=== PATIENT | female | born 1950 | race Caucasian/White ===

== ENCOUNTER 2023-03-13 18:14 | Emergency (ER) | payer OTHER, MEDICARE ==
[2023-03-13] MEDS ORDERED: Boostrix 0.5 ML (Tdap) VIAL (>/=7 yrs of age) ONE (18:38)
[2023-03-13] MEDS ORDERED: Lidocaine 2% w/Epinephrine 1:200K 20 ML VIAL ONE (18:57)
[2023-03-13] MEDS ORDERED: Lidocaine 2% PF 5 ML VIAL ONE (18:58)
[2023-03-13] MEDS ORDERED: Bacitracin 1 PK ONE (19:27)
== END 2023-03-13 19:33 | disposition home or self-care (01) ==
LOC: BURERS 18:14
DX: S51.812A Laceration without foreign body of left forearm, initial encounter (principal); E11.9 Type 2 diabetes mellitus without complications; I10 Essential (primary) hypertension; E78.5 Hyperlipidemia, unspecified; Z79.4 Long term (current) use of insulin; Z79.84 Long term (current) use of oral hypoglycemic drugs; Z79.899 Other long term (current) drug therapy; Z79.82 Long term (current) use of aspirin; Z23 Encounter for immunization; W22.8XXA Striking against or struck by other objects, initial encounter
CPT/HCPCS: 12042; 90471; 90715; J2001